=== PATIENT | male | born 1970 | race Caucasian/White ===

== ENCOUNTER 2025-01-18 09:16 | Emergency (ER) | payer MEDICAID, SELFPAY ==
--- NOTE | 2025-01-18 09:39 | EDNOTE_ITS ---
<Statement entered by Chasity Klein MD - 01/20/25 17:55> As co-signing physician, I was present and available for consult prn. I concur with the plan and care as documented by the midlevel provider. ED Back Injury Pain RME/HPI General Chief Complaint: Back Pain/Injury Stated Complaint: BACK PAIN, LUMP ON BACK Time Seen by Provider: 01/18/25 09:27 Source: patient Arrival date/time: 01/18/25 09:16 54-year-old male with no known medical history presents to the emergency room with a chief complaint of thoracic and lumbar back pain x 5 days Mode of arrival: ambulatory Limitations: no limitations Related Data Previous Rx's ?Medication ?Instructions ?Recorded prednisone 20 mg tablet See Rx Instructions .Route 0 04/05/18 .COMPLEX #20 tabs hydrocodone 5 mg-acetaminophen 325 1 tab PO BID PRN pa in #8 tabs 01/18/25 mg tablet ibuprofen 800 mg tablet 800 mg PO Q8H #20 tabs 01/18 Allergies Allergy/AdvReac Type Severity Reaction Status Date / Time No Known Allergies Allergy Verified 01/18/25 09:19 Review of Systems Review of Systems Systems Reviewed: All systems reviewed, normal except as documented Constitutional Constitutional: Reports system reviewed and no additional complaints, except as documented, Denies fatigue, Denies fever(s), Denies headache(s) and Denies weakness Eyes Eyes: Reports system reviewed and no additional complaints, except as documented, Denies blurry vision and Denies change in vision ENT Ears, Nose, Mouth, and Throat: Reports system reviewed and no additional complaints, except as documented, Denies otalgia, Denies headache(s), Denies nasal congestion, Denies throat swelling and Denies vertigo Cardiovascular Cardiovascular: Reports system reviewed and no additional complaints, except as documented, Denies chest pain, Denies dyspnea and Denies dyspnea on exertion Respiratory Respiratory: Reports system reviewed and no additional complaints, except as documented, Denies chest congestion, Denies cough, Denies dyspnea, Denies dyspnea on exertion and Denies wheezing Gastrointestinal Gastrointestinal: Reports system reviewed and no additional complaints, except as documented, Denies abdominal pain, Denies cramping, Denies nausea and Denies vomiting Genitourinary Genitourinary: Reports system reviewed and no additional complaints, except as documented, Denies dysuria and Denies hematuria Musculoskeletal Musculoskeletal: Reports system reviewed and no additional complaints, except as documented and Reports back pain Integumentary/Breasts Skin/Breast: Reports system reviewed and no additional complaints, except as documented and Denies wounds Neurologic Neurologic: Reports system reviewed and no additional complaints, except as documented, Denies confusion, Denies headache(s), Denies lack of coordination, Denies vertigo and Denies weakness Psychiatric Psychiatric: Reports system reviewed and no additional complaints, except as documented, Denies anxiety, Denies confusion, Denies depression, Denies paranoia, Denies suicidal ideation and Denies tactile hallucinations Endocrine Endocrine: Reports system reviewed and no additional complaints, except as documented and Denies fatigue Hematologic/Lymphatic Hematologic/Lymphatic: Reports system reviewed and no additional complaints, except as documented and Denies lymphadenopathy Allergic/Immunologic Allergic/Immunologic: Reports system reviewed and no additional complaints, except as documented, Denies throat swelling, Denies urticaria and Denies wheezing Past Medical History Past Medical History CARDIAC: Negative Congestive Heart Failure RESPIRATORY: Negative Chronic Obstructive Pulmonary Disease (COPD) GENITOURINARY: Negative Renal Disease ENDOCRINE: Negative Diabetes Mellitus Type 1 or Diabetes Mellitus Type 2 Social History SMOKING STATUS: Current every day smoker ED Exam General Limitations: Present no limitations General appearance: Present alert and in no apparent distress Head Head exam: Present atraumatic Eye Eye exam: Present normal appearance, PERRL and EOMI ENT ENT exam: Present normal exam, normal oropharynx and mucous membranes moist Neck Neck exam: Present normal inspection, full ROM and trachea midline Chest Chest inspection: Present normal inspection and symmetric chest wall rise Respiratory Respiratory exam: Present normal lung sounds bilaterally Cardiovascular Cardiovascular exam: Present regular rate, normal rhythm and normal heart sounds Abdominal Exam Abdominal exam: Present soft and normal bowel sounds Extremities Exam Extremities exam: Present normal inspection and full ROM Back Exam Back exam: Present normal inspection, full ROM, tenderness and vertebral tenderness Neurological Exam Neurological exam: Present alert, oriented X3 and CN II-XII intact Psychiatric Psychiatric exam: Present normal affect and normal mood Skin Skin exam: Present warm, dry, intact and normal color Course Quality Measures none Orders Category Date Time Status XR lumbar spine 2-3V Stat Exams 01/18/25 09:38 Completed XR thoracic spine 2V Stat Exams 01/18/25 09:38 Completed Ketorolac Inj [Toradol Inj] Med 01/18/25 09:38 Discontinued 30 mg IM X1 ONE Vital Signs Vital signs: Vital Signs Temperature 97.9 F 01/18/25 09:41 Pulse Rate 72 01/18/25 09:41 Respiratory Rate 16 01/18/25 09:41 Blood Pressure 121/79 01/18/25 09:41 Pulse Oximetry (%) 97 01/18/25 09:41 Oxygen Delivery Method Room Air 01/18/25 09:41 Back Pain / Injury MDM Narrative MDM Narrative:: 54-year-old male with no known medical history presents to the emergency room with a chief complaint of thoracic and lumbar back pain x 5 days Patient is hemodynamically stable and in no apparent distress Physical examination shows tenderness with palpation of the lumbar and thoracic area of the patient's spine. The patient denies any saddle anesthesia any loss of bowel or bladder function or any numbness to the lower extremities. The patient is able to ambulate. X-ray of the lumbar spine was completed and is negative for any acute findings but does show some multi lumbar spondylosis and degenerative disc space narrowing with some mild dextroscoliosis. X-ray of the thoracic spine also shows some spondylosis Patient was discharged and educated to follow-up with primary care provider as a referral to a rn clinical documentation specialist/PT/chiropractor may be indicated Patient was discharged and educated to follow-up with primary care provider in the next 24 to 48 hours and return to the emergency room for any evidence of worsening signs or symptoms Patient data External records reviewed:: [facility] previous records Clinical information provided by:: patient Social determinants that could affect healthcare access:: none Patient has the following chronic illnesses:: No chronic illness How is presenting disease/condition affected by chronic disease/condition?: no chronic disease Evaluation data The following diagnostics were reviewed and interpreted by me:: lab results and radiology exam(s) Lab and/or radiology exams considered but not ordered:: Labs and radiology exams considered and ordered Interpretation Summary: X-ray lumbar spine-FINDINGS: 5 non rib-bearing lumbar-type vertebral bodies are seen. No evidence for acute vertebral fracture. Multilevel lumbar spondylosis with endplate marginal osteophytes and multilevel disc space narrowing are present, greatest from L3-S1. Degenerative disc vacuum cleft phenomena identified at L3-L4 and to a milder degree at L4-L5. Endplate eburnation is also present, most pronounced at L3-L4. There may be a mild grade 1 degenerative related retrolisthesis of L5 over S1. Multilevel mild facet arthropathy is present, appearing most pronounced at L4-L5 and L5-S1. Mild lumbar dextroscoliosis is present. No aggressive bone lesions are seen. The paraspinous soft tissues are radiographically unremarkable. IMPRESSION: Negative lumbar spine radiographs for acute fracture. Multilevel lumbar spondylosis, degenerative disc space narrowing and mild dextroscoliosis. X-ray thoracic spine-INDINGS: 5 images of the thoracic spine were submitted for review. No acute vertebral compression fractures. Mild to moderate chronic-appearing wedge morphology of the T11 and T12 vertebra is identified, to a milder degree the T10 and L1 vertebra. Minimal to mild multilevel endplate spondylosis is present throughout the thoracic spine with otherwise no evidence for high-grade disc space narrowing. No aggressive bone lesions are seen. A slight convex left curvature is present in the upper half of the thoracic spine. Limited views of the cervical spine also show multilevel spondylosis with endplate degenerative changes and disc space narrowing. The paraspinous soft tissues are radiographically unremarkable. IMPRESSION: Negative thoracic spine radiographs for acute fracture. Multilevel thoracic spondylosis. Medications / Prescriptions Medications or Prescriptions considered but not ordered:: Medication given Medication administrations:: Medication Administration History Discontinued Medications Ketorolac Tromethamine (Ketorolac Inj 60 Mg/2 Ml Vial) 30 mg IM X1 ONE Stop: 01/18/25 09:39 Last Admin: 01/18/25 10:06 Dose: 30 mg Documented By: Medication given Consultations Consultation(s) initiated? (list below): No Diagnosis Differential diagnosis back pain/injury: lumbar radiculopathy, strain of lumbar region, thoracic back pain and other (Spondylosis) Most likely diagnosis given after review of the tests above:: Lumbar and thoracic spondylosis Admission Indicated Admission indicated?: not indicated Admission Request Was there a request for admission?: No Disposition Plan Disposition Plan: Discharge Discharge Attestation Discharge Attestation: The patient and all family members were given an opportunity to ask questions and understood the discharge instructions. Discharge instructions specifically effects, indications for sooner follow up or return to the emergency department, and the expected course of current diagnosis. Patient condition: Stable Discharge Plan Plan Patient Disposition: HOME (Self Care) Discharge Disposition comment: Stable Prescriptions/Referrals Prescriptions/Med Rec: New ibuprofen 800 mg tablet 800 mg PO Q8H Qty: 20 0RF hydrocodone-acetaminophen 5-325 mg tablet 1 tab PO BID MDD 10mg PRN (Reason: pain) Qty: 8 0RF No Action prednisone 20 mg tablet See Rx Instructions .ROUTE .COMPLEX Qty: 20 0RF Rx Instructions: 20 mg orally take 3 tablets on days 1 through 3, increase to 2 tablets on days 4 through 6, decrease to 1 tablet on days 7 through9 , decrease to 1/2 tablet on days 10. through 12. Disp #20 Referrals: Vickey La MD [Primary Care Provider, Family Practice] - In 1 week Problem List Clinical Impression: Spondylosis of lumbar spine, Spondylosis of thoracic spine, Dextroscoliosis of lumbar spine Patient/Caregiver Discharge Instructions Education Materials: ED Degenerative Disk Disease, ED Osteoarthritis Additional Instructions: Please follow-up with your primary care provider in the next 24 to 48 hours X-rays of your lumbar spine and thoracic spine show spondylosis which is a painful condition of the spine where the intervertebral discs are degenerating. For any evidence of worsening signs or symptoms return to the emergency room immediately Print Language: Welsh Stand Alone Forms: Stephanie Award Info., Work/School Release, Patient Portal Info Letter PA/VIET Supervising Physician NEDA/VIET Supervising Physician: Dr. Ross
[2025-01-18 09:41] VITALS: BP 121/79; PULSE 72; RESP 16; TEMP 36.6; O2SAT 97; BMI 23.1
[2025-01-18] MEDS: KETOROLAC INJ 60 MG/2 ML VIAL 30 MG IM (10:06)
== END 2025-01-18 10:50 | disposition home or self-care (01) ==
PROVIDERS: Emergency Provider Emergency Medicine; PCP Family Medicine
DX: M47.814 Spondylosis without myelopathy or radiculopathy, thoracic region (principal); M41.9 Scoliosis, unspecified; M47.816 Spondylosis without myelopathy or radiculopathy, lumbar region
CPT/HCPCS: 72070; 72100; 96372; 99283; J1885